=== PATIENT | male | born 1990 | race Caucasian/White ===

== ENCOUNTER 2016-12-18 11:17 | Emergency (ER) | payer OTHER ==
[2016-12-18 11:18] VITALS: BP 140/91; PULSE 93; RESP 14; TEMP 98.1; O2SAT 97
[2016-12-18] MEDS ORDERED: AMOX875T PO (12:16)
--- NOTE | 2016-12-18 12:22 | PD ---
HPI Chief Complaint: Cold / Flu Symptoms Time Seen by Provider: 12:00 Travel History International Travel<30 days: No Contact w/Intl Traveler<30days: No Traveled to known affect area: No History of Present Illness HPI Patient is a 26-year-old male who presents emergency for evaluation of cough. He states the cough has been ongoing for approximately 2 weeks. He reports being evaluated at an urgent care center as well as the [place] area and he was prescribed steroids, cough medication and most recently amoxicillin. He states at times he breaks out into a cold sweat but denies any fevers, shortness of breath, chest pain, headaches, nausea, vomiting or abdominal pain. Patient is not a smoker and has no significant past medical history. [facility] Past Medical History Medical History: Denies Significant Hx Social History Alcohol Use: No Tobacco Use: No Substance Use: No Allergies-Medications (Allergen,Severity, Reaction): Coded Allergies: Sulfa (Verified Allergy, Severe, Hives, 12/18/16) and rash Reported Meds & Prescriptions Reported Meds & Active Scripts Active Reported Amoxicillin 875 Mg Tab 875 Mg PO BID Review of Systems Except as stated in HPI: all other systems reviewed are Neg Respiratory: Positive: Cough Physical Exam Narrative GENERAL: Well-nourished, well-developed patient. SKIN: Warm and dry. HEAD: Normocephalic. EYES: No scleral icterus. No injection or drainage. NECK: Supple, trachea midline. No JVD or lymphadenopathy. CARDIOVASCULAR: Regular rate and rhythm without murmurs, gallops, or rubs. RESPIRATORY: Breath sounds equal bilaterally. No accessory muscle use. No wheezing, rhonchi, or rales noted. GASTROINTESTINAL: Abdomen soft, non-tender, nondistended. MUSCULOSKELETAL: No cyanosis, or edema. BACK: Nontender without obvious deformity. No CVA tenderness. Data Data Last Documented VS Vital Signs Date Time Temp Pulse Resp B/P Pulse Ox O2 Delivery O2 Flow Rate FiO2 12/18/16 11:18 98.1 93 14 140/91 97 Room Air Orders Chest, Pa & Lat (12/18/16 ) MDM Medical Decision Making Medical Screen Exam Complete: Yes Emergency Medical Condition: Yes Interpretation(s) Vital Signs Date Time Temp Pulse Resp B/P Pulse Ox O2 Delivery O2 Flow Rate FiO2 12/18/16 11:18 98.1 93 14 140/91 97 Room Air Differential Diagnosis Bronchitis versus allergic rhinitis versus postinfectious cough versus pneumonia versus other Narrative Course Patient is a 26-year-old male who presented to emergency room for evaluation of a cough. Patient's had symptoms for approximately 10 days. He has been evaluated twice and given different medications each time. He has been on amoxicillin for the last 3 days with no improvement in his symptoms. He has been afebrile. Imaging was performed to duration of symptoms. Chest x-ray is negative. Cough seems to be triggered by postnasal drip, possible allergic rhinitis. Patient is encouraged follow-up with his primary doctor. He was encouraged to obtain [id number] Sudafed or similar agent. He was encouraged to return to emergency department for any new or worsening symptoms. Patient verbalized understanding of instructions. Patient stable for discharge. Diagnosis Primary Impression: Postnasal drip Additional Impression: Cough Referrals: Primary Care Physician 1 week Patient Instructions: Acute Cough (GEN), Allergic Rhinitis (ED), General Instructions Additional Instructions: Follow-up with a primary doctor Take medications as directed Return to emergency department with any new or worsening symptoms Med/Other Pt SpecificInfo: Prescription(s) given Scripts Montelukast (Singulair)10 Mg Tab10 Mg PO HS #30 TAB Ref 0 Prov:Myrna Martin 12/18/16 Ipratropium Nasal 0.06% Spray1 [place] EACH NARE QID #1 BOTTLE Ref 0 Prov:Myrna Martin 12/18/16 Disposition: 01 DISCHARGE HOME Condition: Stable Myrna Martin Dec 18, 2016 12:22
--- NOTE | 2016-12-18 12:53 | RADRPT ---
EXAM DATE/TIME: 12/18/2016 12:46 [place] COMPARISON: No previous studies available for comparison. INDICATIONS : Coughing, cold and flu symptoms for 10 days, chest pain when coughing MEDICAL HISTORY : bronchitis SURGICAL HISTORY : None. ENCOUNTER: Initial ACUITY: 1 week PAIN SCORE: 2/10 LOCATION: Bilateral chest FINDINGS: PA and lateral views of the chest demonstrate the lungs to be symmetrically aerated without evidence of mass, infiltrate or effusion. The cardiomediastinal contours are unremarkable. Osseous structure s are intact. CONCLUSION: Normal examination for a patient of this age. Abel Holley MD on December 18, 2016 at 12:51 Board Certified Radiologist. This report was verified electronically.
[2016-12-18] MEDS ORDERED: IPRA0.06 EACH NARE (13:10)
[2016-12-18] MEDS ORDERED: MONT10TA2 PO (13:10)
== END 2016-12-18 13:19 | disposition home or self-care (01) ==
LOC: NEPB 11:17
DX: R09.82 Postnasal drip (principal); R05 Cough
CPT/HCPCS: 71020; 99283